=== PATIENT | female | born 1995 | race Caucasian/White ===

== ENCOUNTER 2017-02-18 10:34 | Emergency (ER) | payer OTHER ==
[2017-02-18 10:39] VITALS: O2SAT 98
--- NOTE | 2017-02-18 10:58 | EDPHY ---
HPI/HX/ROS/PE/MDM Narrative: CHIEF COMPLAINT: Allergic reaction HPI: The patient is a 21-year-old female who complains of allergic reaction. The patient took fish oil supplement for the first time this morning. After swallowing the pill she developed throat tightness and facial swelling. The patient felt anxious and reports heart racing. Since arriving to the ED her symptoms have improved. She denies chest pain, dyspnea, or rash. REVIEW OF SYSTEMS: Aside from elements discussed in the HPI, a comprehensive 10-point review of systems was reviewed and is negative. PMH: Hypothyroidism SOCIAL HISTORY: Single. Lives in [place]. PHYSICAL EXAM: General: Patient is alert, in no acute distress. ENT: Eyes are normal to inspection. ENT inspection normal. Neck: Normal inspection. Full range of motion. Respiratory: No respiratory distress. Breath sounds normal bilaterally. Cardiovascular: Regular rate and rhythm. Strong peripheral pulses. Abdomen: The abdomen is nontender to palpation. There are no peritoneal signs. There are normal bowel sounds. Back: Normal to inspection. No tenderness to palpation. Skin: Normal color. No rash. Warm and dry. Extremities: Normal appearance. Full range of motion. Neuro: Oriented x3. Normal motor function. Normal sensory function. ED Course: Plan to monitor the patient for the next hour. Vitals remained stable. Patient is feeling asymptomatic. Plan to discharge home. MDM: This patient presents with subjective itching and swelling of throat which has essentially completely resolved by time of ED presentation. We monitored her in the ED for over an hour with continued lack of symptomatology. It is unclear whether this represents a true allergy vs. local reaction. I certainly don't think steroids or epi-pen are indicated. She is comfortable with plan to be discharged home and we discussed strict return precautions. General Time Seen by Provider: 02/18/17 10:37 Initial Vital Signs: Initial Vital Signs Temperature (C) 36.7 C 02/18/17 10:37 Heart Rate 94 02/18/17 10:37 Respiratory Rate 18 02/18/17 10:37 Blood Pressure 123/89 H 02/18/17 10:37 O2 Sat (%) 98 02/18/17 10:37 O2 Delivery Mode Room Air Allergies/Adverse Reactions: No Known Allergies Allergy (Unverified 02/18/17 10:36) Home Medications: Medication Instructions Recorded Levothyroxine [Synthroid 88 mcg 88 mcg PO DAILY06 02/18/17 (*)] Departure - Departure Disposition: Home, Routine, Self-Care Clinical Impression: Food allergy Condition: Good Instructions: Food Allergy (ED) Additional Instructions: I recommend [id number] Benadryl as directed for itching. Return to the Emergency Department for shortness of breath, difficulty swallowing, difficulty breathing, worsening of rash, fever or other worsening of condition. When symptoms have completely subsided, follow up with an transit worker soon as possible to determine the cause of the allergic reaction. Use EpiPen in case of allergic emergency. Referrals: Allergy/Asthma [Provider Group] - As per Instructions Report Scribed for: Gato Mcallister Report Scribed by: Karishma Castillo Date of Report: 02/18/17 Time of Report: 10:58 Physician Review and Approval Statement: Portions of this note were transcribed by a senior medical technologist. I personally performed the history, physical exam, and medical decision-making; and confirmed the accuracy of the information in the transcribed note.
[2017-02-18 12:04] VITALS: BP 116/78; PULSE 81; RESP 16; TEMP 97.9
== END 2017-02-18 12:07 | disposition home or self-care (01) ==
DX: T78.1XXA Other adverse food reactions, not elsewhere classified, initial encounter (principal)

== ENCOUNTER → 2018-08-01 | Outpatient (CLI) | payer OTHER | LOC: FIMAGING 16:18 | PROVIDERS: ATTEND Physician Assistant Medical | DX: K59.00 Constipation, unspecified (principal) ==